=== PATIENT | male | born 1970 | race Caucasian/White ===

== ENCOUNTER → 2023-11-14 | Outpatient (CLI) | payer OTHER ==
--- NOTE | 2023-11-14 15:06 | XR ---
EXAMINATION TYPE: XR hand limited 2 views RT, XR knee limited 2 views LT DATE OF EXAM: 11/14/2023 COMPARISON: NONE HISTORY: 52-year-old male M25.562 PAIN IN LEFT KNEE,M79.641, PAIN RIGHT HAND FINDINGS: Right hand: Mild to moderate degenerative change at the distal radioulnar joint with marginal spurring and subcho ndral sclerosis. Mild degenerative change at the first CMC joint with marginal spurring. Additional m ild degenerative spurring at the second and third DIP joints. No acute fracture, subluxation, disloca tion seen. Left knee: There is tricompartmental degenerative spurring. No significant joint effusion. Extensor mechanism ap pears intact. No acute fracture, subluxation, or dislocation. IMPRESSION: 1. Right hand: Mild to moderate degenerative change at the distal radioulnar joint. 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 No acute osseous abnormality seen. 2. Left knee: Mild tricompartmental degenerative spurring. No acute osseous abnormality seen.
== END | disposition home or self-care (01) ==
LOC: RADXRMAIN 12:36
DX: M18.0 Bilateral primary osteoarthritis of first carpometacarpal joints (principal); M19.041 Primary osteoarthritis, right hand